=== PATIENT | male | born 1990 | race Caucasian/White ===

== ENCOUNTER 2019-05-07 15:01 | Inpatient (IN) | payer OTHER ==
[~2019-05-07] VITALS: Ht 177.8 cm; Wt 84.5 kg
[2019-05-07 15:40] VITALS: BP 126/69
[2019-05-07] MEDS ORDERED: MAGNESIUM HYDROXIDE 30 ML UDC PO PRN (16:30)
[2019-05-07] MEDS ORDERED: ONDANSETRON HCL/PF 4 MG/2 ML VIAL IVP PRN (16:30)
[2019-05-07] MEDS ORDERED: GUAIFENESIN/D-METHORPHAN HB 5 ML UDC PO PRN (16:30)
[2019-05-07] MEDS ORDERED: HYDROCODONE/APAP 5/325MG 1 EACH TABLET PO PRN (16:30)
[2019-05-07] MEDS ORDERED: ACETAMINOPHEN 325 MG TABLET PO PRN (16:30)
[2019-05-07] MEDS ORDERED: ZOLPIDEM TARTRATE 5 MG TABLET PO PRN (16:30)
[2019-05-07] MEDS ORDERED: ENOXAPARIN SODIUM 40 MG/0.4 ML DISP.SYRIN SQ SCH ×2 (16:30→17:06)
[2019-05-07] MEDS ORDERED: ALBUTEROL FS 2.5 MG/3 ML VIAL.NEB NEB PRN (16:30)
[2019-05-07] MEDS ORDERED: Z GUARD REMEDY 2 OZ OINT TP PRN (16:30)
[2019-05-07] MEDS ORDERED: MAG HYDROX/AL HYDROX/SIMETH 30 ML UDC PO PRN (16:30)
--- NOTE | 2019-05-07 16:35 | NUR ---
RN ADMIRING NOTES ADMITTED A 28 Y/O MALE TO UNIT [facility]IA [facility] FROM [facility], REPORT RECEIVED FROM VINAYAK ALFRED. PT IS A/O X4. ABLE TO MAKE NEEDS KNOWN AND AMBULATORY. PT WITH ADMITTING DIAGNOSIS OF PNEUMONIA. PT ORIENTED TO UNIT, ROOM AND STAFF. PT IS ON SUPPLEMENTAL 02 VIA N/C AT 2LPM, BREATHING EVEN AND UNLABORED, PT NOTED WITH OCCASIONAL DRY COUGH. PT PLACED ON TELE-MONITORING WITH CURRENT READING OF SINUS TACH WITH HR ON 100-110 BPM, NO C/O CARDIAC DISTRESS VOICED. PT NOTED WITH IV ACCESS ON LAC G#18 INTACT, PATENT AND FLUSHES WELL, IVF TO BE STARTED PER MD ORDER. SAFETY MEASURES INITIATED. BED PLACED IN LOW, LOCKED POSITION WITH SIDE-RAILS UP X2. CALL LIGHT PLACED WITHIN EASY REACH OF PT. DR FRAIRE ON UNIT AND MADE AWARE OF ADMISSION. WILL CONTINUE TO MONITOR PT. Addendum: 05/07/19 at 1948 by TREMAINE LUO RN CORRECTION: PT IS CRIMINAL LEGAL ASSISTANT ADMITTING NOTES NOT MS
[2019-05-07 17:02] LABS: BASOPHILS # (AUTO) 0.2 /CMM (0.0-0.2); EOSINOPHILS % (AUTO) 1.3 % (0.0-6.0); HEMATOCRIT 40 % (39-51); HEMOGLOBIN 13.6 g/dL (13.5-17.5); LYMPHOCYTES # (AUTO) 0.7 /CMM (0.8-4.8); MEAN CORPUSCULAR HGB CONC 34 g/dl (31.0-36.0); MEAN CORPUSCULAR VOLUME 89 fL (80-96); MONOCYTES # (AUTO) 0.8 /CMM (0.1-1.30); MONOCYTES % (AUTO) 7.6 % (2.0-12.0); NEUTROPHILS # (AUTO) 8.3 /CMM (1.8-8.9); NEUTROPHILS % (AUTO) 82.1 % (43.0-81.0); PLATELET COUNT (AUTO) 323 /CMM (150-450); RED BLOOD CELL COUNT(AUTO) 4.53 MIL/uL (4.5-6.0); WHITE BLOOD COUNT (AUTO) 10.1 K/uL (4.3-11.0)
[2019-05-07 17:22] LABS: CALCIUM, SERUM 7.9 mg/dL (8.5-10.1); CREATININE 0.8 mg/dL (0.6-1.3); POTASSIUM 3.7 mmol/L (3.5-5.1)
[2019-05-07 17:24] LABS: THYROID STIMULATING HORMONE 1.746 uIU/mL (0.358-3.74)
[2019-05-07] MEDS: LEVOFLOXACIN (750 MG) 750 MG TABLET PO SCH (17:24)
[2019-05-07] MEDS: IV NS 0.9% 1,000 ML IV PRN (17:25)
[2019-05-07 17:29] LABS: LYMPHOCYTES % (MANUAL) 8 % (16-48); NEUTROPHILS % (MANUAL) 75 (42-76)
[2019-05-07 17:30] LABS: EOSINOPHILS % (MANUAL) 3 % (0-4); MONOCYTES % (MANUAL) 14 % (0-11.0)
[2019-05-07] MEDS: ENOXAPARIN SODIUM 40 MG/0.4 ML DISP.SYRIN SQ SCH (17:45)
--- NOTE | 2019-05-07 18:50 | NUR ---
[facility] [employer] CLOSING NOTES PT AWAKE AND RESTING IN BED AT THIS TIME. HOB ELEVATED. A/O X4 AND ABLE TO MAKE NEEDS KNOWN. ON 02 VIA N/C AT 2LPM, TOLERATING WELL WITH NO ACUTE RESPIRATORY DISTRESS NOTED. TELE-MONITORING SHOWS SR WITH HR ON THE 90'S AT THIS TIME, NO C/O CARDIAC DISTRESS VOICED. IV ACCESS ON LAC G#20 INTACT AND PATENT, IVF OF NS @ 75ML/HR INFUSING WELL, NO S/S OF REDNESS OR INFILTRATIONS AT SITE NOTED. ALL NEEDS AND CARE ATTENDED WELL. SAFETY MEASURES KEPT IN PLACE. BED IN LOW, LOCKED POSITION WITH SR UP X2. CALL LIGHT WITHIN REACH. WILL ENDORSE TO MEDICAL DATA ANALYST NURSE FOR PENNY
--- NOTE | 2019-05-07 19:25 | NUR ---
MS/RN NOTES RECEIVED PT. LYING IN BED. PT. IS AWAKE, ALERT AND ORIENTED X3. BREATHING EVEN AND UNLABORED ON 2LPM O2 VIA NC. NO SOB, RESPIRATORY DISTRESS OR COMPLAINTS OF PAIN NOTED AT THIS TIME. PT. WITH EXTERNAL FREIGHT CALLER PRESENT AND INTACT. CURRENT RHYTHM = SINUS RHYTHM HR 88. PT. WITH LEFT AC 18 GAUGE PERIPHERAL IV PRESENT, PATENT AND INTACT ADMINISTERING TO PT. NS @ 75 ML/HR. BED LOCKED AND IN LOWEST POSITION, SIDE RAILS UP X2, CALL LIGHT WITHIN REACH, WILL CONTINUE TO MONITOR.
[2019-05-07 19:59] VITALS: BP 103/58
[2019-05-07] MEDS ORDERED: VANCOMYCIN 1 GM in IV D5W 250ml IV SCH (22:00)
[2019-05-07] MEDS ORDERED: VANCOMYCIN HCL 1.25 GM in IV D5W 250 ML IV SCH (22:00)
[2019-05-07] MEDS ORDERED: VANCOMYCIN 1 GM VIAL ONE (22:20)
[2019-05-08] VITALS: BP 120/67
[2019-05-08] MEDS ORDERED: PIPERACILLIN /TAZOBACTAM 2.25 G VIAL IV ONE ×2 (00:18→05:53)
[2019-05-08] MEDS: PIPERACILLIN /TAZOBACTAM 4.5 G in IV D5W 50 ML IV SCH ×4 (00:45→17:02)
--- NOTE | 2019-05-08 00:45 | NUR ---
MS/RN NOTES CALLED [facility] TO CLARIFY PT. ZOSYN MEDICATION ORDER. PER PHARMACIST MILKA CHAPARRO TO ADMINISTER TO PT. 0000 AND 0600 DOSE OF ZOSYN ORDERED. ZOSYN 4.5G UNAVAILABLE AND WILL ADMINISTER TO PT. 2 BAGS OF ZOSYN 2.25G. WILL CONTINUE TO MONITOR.
[2019-05-08 04:00] VITALS: BP 99/81
[2019-05-08 06:48] LABS: CALCIUM, SERUM 8.6 mg/dL (8.5-10.1); CREATININE 0.9 mg/dL (0.6-1.3); PHOSPHORUS 4.7 mg/dL (2.5-4.9); POTASSIUM 4.3 mmol/L (3.5-5.1)
--- NOTE | 2019-05-08 06:56 | NUR ---
MS/RN NOTES PT. IS LYING IN BED RESTING. BREATHING EVEN AND UNLABORED ON 2LPM O2 VIA NC. NO SOB, RESPIRATORY DISTRESS OR COMPLAINTS OF PAIN NOTED AT THIS TIME. PT. WITH EXTERNAL SUPERVISOR STERILE PROCESSING PRESENT AND INTACT. PT. WITH LEFT AC 18 GAUGE PERIPHERAL IV PRESENT, PATENT AND INTACT ADMINISTERING TO PT. NS @ 75 ML/HR. ALL PT. NEEDS MET. BED LOCKED AND IN LOWEST POSITION, SIDE RAILS UP X2, CALL LIGHT WITHIN REACH, WILL ENDORSE TO DAYSHIFT NURSE FOR CONTINUITY OF CARE.
[2019-05-08 07:01] LABS: BASOPHILS % (AUTO) 0.3 % (0.0-2.0); EOSINOPHILS % (AUTO) 2.5 % (0.0-6.0); HEMATOCRIT 41 % (39-51); HEMOGLOBIN 13.6 g/dL (13.5-17.5); MEAN CORPUSCULAR HGB CONC 34 g/dl (31.0-36.0); MEAN CORPUSCULAR VOLUME 89 fL (80-96); MONOCYTES # (AUTO) 0.7 /CMM (0.1-1.30); MONOCYTES % (AUTO) 8.4 % (2.0-12.0); NEUTROPHILS # (AUTO) 6.7 /CMM (1.8-8.9); NEUTROPHILS % (AUTO) 76.8 % (43.0-81.0); PLATELET COUNT (AUTO) 304 /CMM (150-450); RED BLOOD CELL COUNT(AUTO) 4.55 MIL/uL (4.5-6.0); WHITE BLOOD COUNT (AUTO) 8.7 K/uL (4.3-11.0)
--- NOTE | 2019-05-08 07:20 | NUR ---
RN OPENING NOTES RECEIVED PATIENT IS LYING IN BED RESTING. A/OX4, ABLE TO MAKE NEEDS KNOWN.PANAMANIAN SPEAKING, SPEAKS AND UNDERSTANDS BASIC BURMESE. BREATHING EVEN AND UNLABORED ON 2LPM O2 VIA NC. NO SOB. NO RESPIRATORY DISTRESS OR COMPLAINTS OF PAIN NOTED AT THIS TIME. WITH EXTERNAL MEDICAL BILLING AND CODING INSTRUCTOR, SR HR 89. IV ACCESS ON LEFT AC 18 GAUGE, PATENT AND INTACT, ON IVF OF NS @ 75 ML/HR. KEPT PATIENT SAFE AND COMFORTABLE. BED LOCKED AND IN LOWEST POSITION, SIDERAILS UPX2,CALL LIGHT IN REACH. WILL CONT TO MONIOTR ACCORDINGLY
[2019-05-08 08:00] VITALS: BP 113/62
[2019-05-08] MEDS ORDERED: FEE PK DOSING 1 MIN EA MC ONE (08:21)
[2019-05-08] MEDS: VANCOMYCIN 1.25 GM in IV D5W 500 ML IV SCH ×2 (11:02→18:03)
[2019-05-08 16:00] VITALS: BP 114/64
[2019-05-08] MEDS: LEVOFLOXACIN (750 MG) 750 MG TABLET PO SCH (16:59)
[2019-05-08] MEDS: LACTOBACILLUS RHAMNOSUS GG 1 EACH CAP.SPRINK PO SCH (17:00)
[2019-05-08] MEDS: IV NS 0.9% 1,000 ML IV PRN (18:11)
--- NOTE | 2019-05-08 19:38 | NUR ---
RN CLOSING NOTES PATIENT IN BED RESTING. ALL NEEDS ATTENDED AND PROVIDED. ALL DUE MEDICATIONS GIVEN ORDERED. KEPT PATIENT SAFE AND COMFORTABLE. BED IN LOW/LOCKED POSITION, SIDERAILS UPX2,CALL LIGHTS IN REACH. ENDORSED TO NIGHT RN FOR PENNY.
--- NOTE | 2019-05-08 19:52 | NUR ---
MS RN NOTES RECEIVED PATIENT AWAKE IN BED WITH NO DISTRESS NOTED. CALL LIGHT WITHIN REACH. PERIPHERAL LINE INTACT AND PATENT. NO C/O PAIN OR DISCOMFORT. ENCOURAGED USE OF CALL LIGHT FOR ASSISTANCE AND VERBALIZED GOOD UNDERSTANDING. BED IN LOW LOCK SETTING. ROOM FREE OF CLUTTER AND BELONGINGS KEPT NEAR BEDSIDE. WILL CONTINUE TO MONITOR.
[2019-05-08 20:00] VITALS: BP 117/64
[2019-05-08] MEDS: ENOXAPARIN SODIUM 40 MG/0.4 ML DISP.SYRIN SQ SCH (22:06)
[2019-05-09] MEDS: PIPERACILLIN /TAZOBACTAM 4.5 G in IV D5W 50 ML IV SCH ×4 (00:21→18:51)
[2019-05-09] MEDS: VANCOMYCIN 1.25 GM in IV D5W 500 ML IV SCH ×3 (01:19→17:31)
--- NOTE | 2019-05-09 06:24 | NUR ---
MS RN NOTES PATIENT ASLEEP IN BED WITH NO DISTRESS NOTED. CALL LIGHT WITHIN REACH. ALL DUE MEDS GIVEN ORDERED WITH NO ASE NOTED. PERIPHERAL INTACT AND PATENT. NO C/O PAIN OR DISCOMFORT. BED IN LOW LOCK SETTING. ROOM FREE OF CLUTTER AND BELONGINGS KEPT NEAR BEDSIDE. WILL ENDORSE TO ONCOMING SHIFT.
[2019-05-09 07:00] VITALS: BP 113/63
--- NOTE | 2019-05-09 08:00 | NUR ---
MS RN RECEIVED ON BED, AWAKE,ALERT,ORIENTED X4,NOT [place] FORM OF DISTRESS, RESPIRATIONS EVEN AND UNLABORED, NO SOB NOTED.LUNGS ARE DIMINISHED,ABDOMEN SOFT,POSITIVE BOWEL SOUNDS.
[2019-05-09 08:33] LABS: CALCIUM, SERUM 8.5 mg/dL (8.5-10.1); CREATININE 0.8 mg/dL (0.6-1.3); POTASSIUM 3.7 mmol/L (3.5-5.1)
--- NOTE | 2019-05-09 09:00 | NUR ---
MS LICEA BREAKFAST SERVED,DUE MEDS GIVEN,TOLERATED WELL.
[2019-05-09] MEDS: LACTOBACILLUS RHAMNOSUS GG 1 EACH CAP.SPRINK PO SCH ×2 (09:14→17:31)
--- NOTE | 2019-05-09 10:00 | NUR ---
MS RN PATIENT WILL BE SEEN BY NARAYAN GERMAIN BEFORE D/C PER PRIMARY, CALLED DR. BUSCH OFFICE, DOES NOT ANSWER.
--- NOTE | 2019-05-09 14:55 | NUR ---
MS LIBRARY ATTENDANT CALLED, THEY WANT PATIENT TO STAY ONE MORE DAY, BECAUSE HE STILL FEELS WEAK, CHARGE NURSE AWARE.
[2019-05-09 16:00] VITALS: BP 125/59
[2019-05-09 16:32] VITALS: BP_SYST 125; BP_SYST 99; BP_DIAS 59; BP_DIAS 63
[2019-05-09] MEDS: LEVOFLOXACIN (750 MG) 750 MG TABLET PO SCH (17:31)
--- NOTE | 2019-05-09 19:35 | NUR ---
MS RN NOTES RECEIVED ON BED A/O X4,LEBANESE,UNDERSTAND PORTUGUESE,IV ABX INFUSING,WITH IVF NS AT 75ML/HR RATE,SITE PATENT ON LEFT AC.AMBULATORY.CALL LIGHT IN REACH,NEEDS ANTICIPATED.
[2019-05-09 20:00] VITALS: BP 122/57
[2019-05-09] MEDS: ENOXAPARIN SODIUM 40 MG/0.4 ML DISP.SYRIN SQ SCH (21:00)
[2019-05-09 22:00] VITALS: BP 122/57
[2019-05-10] MEDS: PIPERACILLIN /TAZOBACTAM 4.5 G in IV D5W 50 ML IV SCH ×3 (00:26→12:16)
[2019-05-10] MEDS: VANCOMYCIN 1.25 GM in IV D5W 500 ML IV SCH ×3 (01:05→16:29)
[2019-05-10] MEDS: IV NS 0.9% 1,000 ML IV PRN (04:00)
[2019-05-10 06:25] LABS: BASOPHILS % (AUTO) 0.3 % (0.0-2.0); HEMATOCRIT 39 % (39-51); HEMOGLOBIN 13.3 g/dL (13.5-17.5); LYMPHOCYTES # (AUTO) 1.7 /CMM (0.8-4.8); LYMPHOCYTES % (AUTO) 14.8 % (20.0-44.0); MEAN CORPUSCULAR HGB CONC 34 g/dl (31.0-36.0); MEAN CORPUSCULAR VOLUME 89 fL (80-96); MONOCYTES # (AUTO) 0.9 /CMM (0.1-1.30); MONOCYTES % (AUTO) 8.2 % (2.0-12.0); NEUTROPHILS # (AUTO) 8.2 /CMM (1.8-8.9); NEUTROPHILS % (AUTO) 73.7 % (43.0-81.0); PLATELET COUNT (AUTO) 323 /CMM (150-450); RED BLOOD CELL COUNT(AUTO) 4.38 MIL/uL (4.5-6.0); WHITE BLOOD COUNT (AUTO) 11.2 K/uL (4.3-11.0)
[2019-05-10 06:32] LABS: CALCIUM, SERUM 8.5 mg/dL (8.5-10.1); CREATININE 0.7 mg/dL (0.6-1.3); MAGNESIUM 2.2 mg/dL (1.8-2.4); POTASSIUM 4.1 mmol/L (3.5-5.1)
--- NOTE | 2019-05-10 06:51 | NUR ---
MS RN NOTES SLEPT WELL,IV ABX TOLERATED WELL.NO SOB,AFEBRILE.AMBULATES.IN NO ACUTE DISTRESS.FOR D/C PLANNING IF SEEN BY DR BUSCH.WILL ENDORSE TO DAY NURSE FOR PENNY.
--- NOTE | 2019-05-10 07:51 | NUR ---
MS RN OPENING NOTES Received Patient awake and resting in bed. A/O x 4, Tristanian/Singaporean speaking. VS stable with no acute distress. Breathing even and unlabored on 2LPM via NC with no respiratory distress. Denies pain. 18g PIV on LAC clean, dry, intact and flushing well with NS running at 75ml/hr. Safety precautions in place. Bed locked and set to lowest position with side rails x 2. All needs rendered at this time. Call light within reach. Will continue to monitor.
[2019-05-10] MEDS: LACTOBACILLUS RHAMNOSUS GG 1 EACH CAP.SPRINK PO SCH ×2 (08:55→16:29)
[2019-05-10] MEDS ORDERED: CEFU500T66 PO (10:54)
[2019-05-10] MEDS ORDERED: DOXY100C41 PO (10:54)
[2019-05-10 16:08] VITALS: BP 112/68
[2019-05-10] MEDS: LEVOFLOXACIN (750 MG) 750 MG TABLET PO SCH (16:29)
--- NOTE | 2019-05-10 17:29 | NUR ---
MS BALANCE SCREWHEAD POLISHER NOTES Patient discharged for Home at this time. Patient in stable condition. VS stable with no acute distress. Breathing even and unlabored on room air with SPO2 95% and no respiratory distress. Denies pain. Skin intact. Removed PIV on LAC clean and intact. Patient tolerated well. Medication reconciliation and discharge orders reviewed and explained to Patient. Patient verbalized understanding. Patient will continue PO ABX as prescribed. All belongings with Patient. Escorted Patient to Lobby for safety. Patient picked up by [facility] ([facility]).
== END 2019-05-10 17:15 | disposition home or self-care (01) | DRG 177 ==
LOC: TELE 15:47 → MED 05-08 08:28
PROVIDERS: ADMIT Internal Medicine; ATTEND Nurse Practitioner Acute Care
DX: J15.6 Pneumonia due to other Gram-negative bacteria (principal); J96.01 Acute respiratory failure with hypoxia; J06.9 Acute upper respiratory infection, unspecified
CPT/HCPCS: 36415; 71045-TC; 71250-TC; 80048-TC; 80061-TC; 80202-TC; 83735-TC; 84100-TC; 84443-TC; 85025-TC; 85652-TC; 87040-TC; 87081-TC; 94799-TC; 97116-TC; 97530-TC; A4623; G0378; J1650; J2543; J3370; J7030; J7060